=== PATIENT | male | born 1995 | race American Indian/Alaskan Native ===

== ENCOUNTER 2017-06-02 22:08 | Emergency (ER) | payer MEDICAID ==
[2017-06-02 22:19] VITALS: BP 136/74; PULSE 54; RESP 18; TEMP 97.8; O2SAT 100
[2017-06-02] MEDS ORDERED: Povidone Iodine Oint 10% Foilpak UD ONE (22:57)
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
== END 2017-06-02 23:25 | disposition home or self-care (01) ==
LOC: H.ER 22:08
DX: S31.114A Laceration without foreign body of abdominal wall, left lower quadrant without penetration into peritoneal cavity, initial encounter (principal); S30.812A Abrasion of penis, initial encounter; V11.4XXA Pedal cycle driver injured in collision with other pedal cycle in traffic accident, initial encounter; Y93.55 Activity, bike riding; Z23 Encounter for immunization

== ENCOUNTER 2018-02-25 15:20 | Emergency (ER) | payer SELFPAY ==
[2018-02-25] MEDS ORDERED: Sodium Chloride 0.9% 1,000 ML IV STA (16:17)
[2018-02-25 17:05] LABS: BASO # 0.1 K/uL (0.0-0.2); BASO % 0.8 % (0.0-2.0); EOS # 0.2 K/uL (0.0-0.7); EOS % 2.2 % (0.0-4.0); HEMOGLOBIN 15.1 g/dL (12.0-18.0); LYMPH # 1.8 K/uL (1.0-4.3); LYMPH % 23.2 % (20.0-40.0); MEAN CELL VOLUME 85.1 fl (80.0-94.0); MEAN CORPUSCULAR HEMOGLOBIN 29.9 pg (27.0-31.0); MEAN CORPUSCULAR HGB CONC 35.1 g/dL (33.0-37.0); MEAN PLATELET VOLUME 9.3 fl (7.2-11.7); MONO # 0.4 K/uL (0.0-0.8); MONO % 5.2 % (0.0-10.0); NEUT # 5.4 K/uL (1.8-7.0); NEUT % 68.6 % (50.0-75.0); NRBC % 0.1 % (0.0-0.0); RBC 5.06 Mil/uL (4.40-5.90); RED CELL DISTRIBUTION WIDTH 13.6 % (11.5-14.5); WHITE BLOOD COUNT 7.9 K/uL (4.8-10.8)
[2018-02-25 17:30] LABS: ALB/GLOB RATIO 1.4 (1.0-2.1); ALBUMIN 4.1 g/dL (3.5-5.0); ALT/SGPT 38 U/L (21-72); AST/SGOT 30 U/L (17-59); BLOOD UREA NITROGEN 19 mg/dl (9-20); CALCIUM 9.3 mg/dL (8.4-10.2); GFR AFRICAN-AMERICAN > 60; GFR NON-AFRICAN AMERICAN > 60
--- NOTE | 2018-02-25 17:53 | CT ---
PROCEDURE: CT HEAD WITHOUT CONTRAST. HISTORY: headache, dizziness COMPARISON: 02/19/2016. TECHNIQUE: Axial computed tomography images were obtained through the head/brain without intravenous contrast. Coronal and sagittal reconstructed images. Radiation dose: Total exam DLP = 850.20 mGy-cm. This CT exam was performed using one or more of the following dose reduction techniques: Automated exposure control, adjustment of the mA and/or kV according to patient size, and/or use of iterative reconstruction technique. FINDINGS: HEMORRHAGE: No intracranial hemorrhage. BRAIN: No mass effect or edema. No atrophy or chronic microvascular ischemic changes. VENTRICLES: Unremarkable. No hydrocephalus. CALVARIUM: Unremarkable. PARANASAL SINUSES: Unremarkable as visualized. No significant inflammatory changes. MASTOID AIR CELLS: Unremarkable as visualized. No inflammatory changes. OTHER FINDINGS: None. IMPRESSION: No acute intracranial abnormalities. No significant findings to account for the clinical presentation. No significant interval change compared to the prior examination(s).
--- NOTE | 2018-02-25 19:10 | ED PDOC ---
HPI: General Adult Time Seen by Provider: 02/25/18 15:28 Chief Complaint (Nursing): Headache Chief Complaint (Provider): Lightheadedness, headache History Per: Patient History/Exam Limitations: no limitations Onset/Duration Of Symptoms: Mins Have you had recent travel within the past 21 days to any of the following countries: [place], [place], [place] or [place]?: No Current Symptoms Are (Timing): Still Present Additional Complaint(s): 22 yo male with no medical problems brought from work for evaluation after an episode of lightheadedness. Pt states he was standing shortly after work he began feeling lightheaded like he might pass out. Pt denies similar in the past. Pt states he was walking to a chair to sit and almost passed out. Pt curently reports headache, mild and does not want anything for pain. Past Medical History Reviewed: Historical Data, Nursing Documentation, Vital Signs Vital Signs: Last Vital Signs Temp 98.4 F 02/25/18 18:47 Pulse 57 L 02/25/18 18:47 Resp 18 02/25/18 18:47 BP 97/66 L 02/25/18 18:47 Pulse Ox 100 02/25/18 19:12 - Medical History PMH: No Chronic Diseases - Surgical History Surgical History: No Surg Hx - Family History Family History: States: Unknown Family Hx - Living Arrangements Living Arrangements: With Family - Social History Current smoker - smoking cessation education provided: No Drugs: Cannabis (This morning) - Home Medications Home Medications: Ambulatory Orders Medication Instructions Recorded Cyclobenzaprine HCl [Flexeril] 10 mg PO BID PRN #12 tab 10/01/14 Ibuprofen [Motrin Tab] 600 mg PO Q8H PRN #20 tab 10/01/14 Acetaminophen/Butalbital/Caf 1 - 2 tab PO Q6 PRN #20 tab 02/19/16 [Fioricet] Ondansetron [Zofran Odt] 4 mg PO ASDIR PRN #20 odt 08/21/16 - Allergies Allergies/Adverse Reactions: Allergies Allergy/AdvReac Type Severity Reaction Status Date / Time No Known Allergies Allergy Verified 10/01/14 21:01 Review of Systems ROS Statement: Except As Marked, All Systems Reviewed And Found Negative Constitutional: Negative for: Fever, Chills Cardiovascular: Negative for: Chest Pain, Palpitations Gastrointestinal: Negative for: Nausea, Vomiting Neurological: Positive for: Headache, Dizziness Physical Exam - Reviewed Nursing Documentation Reviewed: Yes Vital Signs Reviewed: Yes - Physical Exam Appears: Positive for: Well, Non-toxic, No Acute Distress Head Exam: Positive for: ATRAUMATIC, NORMAL INSPECTION, NORMOCEPHALIC Skin: Positive for: Normal Color, Warm, DRY Eye Exam: Positive for: Normal appearance, EOMI, PERRL ENT: Positive for: Normal ENT Inspection Neck: Positive for: Normal, Painless ROM Cardiovascular/Chest: Positive for: Regular Rate, Rhythm Respiratory: Positive for: CNT, Normal Breath Sounds Back: Positive for: Normal Inspection Extremity: Positive for: Normal ROM Neurologic/Psych: Positive for: Alert, Oriented - Laboratory Results Result Diagrams: 02/25/18 16:10 02/25/18 16:10 - ECG O2 Sat by Pulse Oximetry: 100 Medical Decision Making Medical Decision Making: Labs normal. EKG normal. Orthostatics normal. Disposition - Clinical Impression Clinical Impression: Lightheadedness - Patient ED Disposition Is Patient to be Admitted: No - Disposition Disposition: Routine/Home Disposition Time: 19:12 Condition: GOOD Instructions: Dizziness, Nonvertigo, (DC) Forms: [employer] (Maori)
[2018-02-25 19:33] VITALS: BP 110/70; PULSE 72; RESP 20; TEMP 98; O2SAT 98
--- NOTE | 2018-02-28 06:49 | CARD ---
APPROVED REPORT EKG Measurement Heart [id number] <Conclusion> Sinus bradycardia with sinus arrhythmia Early repolarization Otherwise normal ECG
== END 2018-02-25 19:33 | disposition home or self-care (01) ==
LOC: H.ER 15:20
DX: R42 Dizziness and giddiness (principal)
CPT/HCPCS: 70450; 80053; 82948; 84443; 85025; 99285; J7040

== ENCOUNTER 2018-11-18 21:38 | Emergency (ER) | payer SELFPAY ==
[2018-11-18 21:46] VITALS: TEMP 97.9; O2SAT 98
[2018-11-19] MEDS ORDERED: Sodium Chloride 0.9% 1,000 ML IV STA ×2 (00:56→02:39)
[2018-11-19] MEDS ORDERED: Morphine 4 MG/ML VIAL IVP STA (00:57)
--- NOTE | 2018-11-19 01:43 | ED PDOC ---
HPI: Abdomen Time Seen by Provider: 11/19/18 00:42 Chief Complaint (Nursing): Abdominal Pain Chief Complaint (Provider): Abdominal Pain History Per: Patient History/Exam Limitations: no limitations Onset/Duration Of Symptoms: Days (x3 days) Associated Symptoms: Nausea, Vomiting, Diarrhea Additional Complaint(s): Steve Flower is a 23 year old male with no past medical history, who presents to the emergency department complaining of x3 days of worsening nausea, vomiting, diarrhea and abdominal pain. He states that it started out as mild nausea, vomiting, with occasional diarrhea but it got worse over the last two days, where he could not sleep tonight. Today, patient is unable to tolerate PO and started vomiting when he took Tylenol and water. He states that when he could not drink water, he decided to come to the ED. PMD: No provider Past Medical History Reviewed: Historical Data, Nursing Documentation, Vital Signs Vital Signs: Last Vital Signs Temp 97.9 F 11/18/18 21:44 Pulse 58 L 11/18/18 21:44 Resp 17 11/18/18 21:44 BP 122/67 11/18/18 21:44 Pulse Ox 98 11/18/18 21:44 - Medical History PMH: No Chronic Diseases - Surgical History Surgical History: No Surg Hx - Family History Family History: States: Unknown Family Hx - Home Medications Home Medications: Ambulatory Orders Medication Instructions Recorded Cyclobenzaprine HCl [Flexeril] 10 mg PO BID PRN #12 tab 10/01/14 Ibuprofen [Motrin Tab] 600 mg PO Q8H PRN #20 tab 10/01/14 Acetaminophen/Butalbital/Caf 1 - 2 tab PO Q6 PRN #20 tab 02/19/16 [Fioricet] Ondansetron [Zofran Odt] 4 mg PO ASDIR PRN #20 odt 08/21/16 - Allergies Allergies/Adverse Reactions: Allergies Allergy/AdvReac Type Severity Reaction Status Date / Time No Known Allergies Allergy Verified 10/01/14 21:01 Review of Systems ROS Statement: Except As Marked, All Systems Reviewed And Found Negative Gastrointestinal: Positive for: Nausea, Vomiting, Abdominal Pain, Diarrhea Physical Exam - Reviewed Nursing Documentation Reviewed: Yes Vital Signs Reviewed: Yes - Physical Exam Appears: Positive for: No Acute Distress (in pain; laying in position; dehydrated) Head Exam: Positive for: ATRAUMATIC, NORMOCEPHALIC Skin: Positive for: Normal Color, Warm, Dry Cardiovascular/Chest: Positive for: Regular Rate, Rhythm. Negative for: Murmur Respiratory: Positive for: Normal Breath Sounds. Negative for: Respiratory Distress Gastrointestinal/Abdominal: Positive for: Guarding (diffuse guarding worse on right sided) Back: Negative for: L CVA Tenderness, R CVA Tenderness - Laboratory Results Result Diagrams: 11/19/18 01:17 11/19/18 01:17 - ECG O2 Sat by Pulse Oximetry: 98 (RA) Pulse Ox Interpretation: Normal Medical Decision Making Medical Decision Making: Time: 0110 A/P: Work up for abdominal pathology, including appendicitis. Low suspicion of renal ideology. IV fluids, pain control, and labs. Consider CT abd/pelvis if symptoms are not resolved or if signs of infectious process. --CMP --CBC with differential --Morphine 2 mg IVP --Sodium chloride 1,000 ml --Zofran 4 mg IVP --Urinalysis 0450 Patient has improved symptoms and is tolerating PO. He will be discharged home and told to follow up with PMD as needed. Return parameters were discussed. Scribe Attestation: Documented by Bimal Shrestha acting as a scribe for Radha Pfeiffer MD. Provider Scribe Attestation: All medical record entries made by the Scribe were at my direction and personally dictated by me. I have reviewed the chart and agree that the record accurately reflects my personal performance of the history, physical exam, medical decision making, and the department course for this patient. I have also personally directed, reviewed, and agree with the discharge instructions and disposition. Disposition - Clinical Impression Clinical Impression: Abdominal pain, Vomiting - Disposition Disposition: Routine/Home Disposition Time: 04:50 Condition: IMPROVED Additional Instructions: Drink plenty of water and rest while symptoms last. Follow up with primary medical doctor. Return to the emergency department if symptoms worsen or if new symptoms develop. Instructions: Acute Abdomen (Belly Pain), Adult (DC), Nausea and Vomiting, Adult, Viral Gastroenteritis, Adult (DC) Forms: [facility] [facility] (Macedonian), [facility] ED School/Work Excuse Print Language: FRENCH
[2018-11-19] MEDS ORDERED: Morphine 4 MG/ML VIAL ONE (01:45)
[2018-11-19 01:50] LABS: BASO # 0.1 K/uL (0.0-0.2); BASO % 0.6 % (0.0-2.0); EOS % 0.1 % (0.0-4.0); HEMOGLOBIN 16.2 g/dL (12.0-18.0); LYMPH # 1.6 K/uL (1.0-4.3); MEAN CELL VOLUME 85.2 fl (80.0-94.0); MEAN CORPUSCULAR HEMOGLOBIN 29.6 pg (27.0-31.0); MEAN CORPUSCULAR HGB CONC 34.8 g/dL (33.0-37.0); MEAN PLATELET VOLUME 9.9 fl (7.2-11.7); MONO # 0.4 K/uL (0.0-0.8); MONO % 4.2 % (0.0-10.0); NEUT # 7.4 K/uL (1.8-7.0); NEUT % 78.1 % (50.0-75.0); NRBC % 0.1 % (0.0-0.0); RBC 5.45 Mil/uL (4.40-5.90); RED CELL DISTRIBUTION WIDTH 13.7 % (11.5-14.5); WHITE BLOOD COUNT 9.4 K/uL (4.8-10.8)
[2018-11-19 01:53] LABS: ALB/GLOB RATIO 1.3 (1.0-2.1); ALBUMIN 4.5 g/dL (3.5-5.0); ALT/SGPT 38 U/L (21-72); AST/SGOT 39 U/L (17-59); BLOOD UREA NITROGEN 14 mg/dl (9-20); CALCIUM 9.7 mg/dL (8.4-10.2); GFR NON-AFRICAN AMERICAN > 60
[2018-11-19 05:57] VITALS: BP 111/54; PULSE 67; RESP 16
== END 2018-11-19 05:57 | disposition home or self-care (01) ==
LOC: H.ER 21:38
DX: R10.9 Unspecified abdominal pain (principal); R11.10 Vomiting, unspecified
CPT/HCPCS: 80053; 85025; 96361; 96374; 96375; 99283; J1885; J2270; J2405; J7030